=== PATIENT | female | born 1975 | race Caucasian/White ===

== ENCOUNTER → 2019-02-28 | Outpatient (CLI) | payer BC ==
[~2019-02-28] MED LIST: ACET325 PO; ALBU2.5V5 INH; BASAGLAR K100 UNIT/1 SC; Bumetanide1 MG PO; Culturelle1 CAP PO; Duoneb 2.5-0.5 M3 ML INH; FLUC150A PO; Humalog Mi100 UNIT/4; IBUP200 PO; LEVO750 PO; NAPR220 PO; OMEPRAZOLE20 MG PO; OSEL75CA PO; PROBIOTIC250 MG PO; ZYRTEC10 M2 PO
[2019-03-05 16:07] LABS: HPV 16 Negative (Negative); HPV 18 Negative (Negative); HPV OTHER HR TYPES Negative (Negative)
== END | disposition home or self-care (01) ==
LOC: LAB 10:15 → LAB SHORT 10:15
PROVIDERS: Obstetrics & Gynecology
DX: Z01.419 Encounter for gynecological examination (general) (routine) without abnormal findings (principal)
CPT/HCPCS: 87624; G0123

== ENCOUNTER 2019-04-03 11:26 | Inpatient (IN) | payer BC ==
[~2019-04-03] VITALS: Ht 160 cm; Wt 123.4 kg
[2019-04-03 12:00] LABS: PCO2 Arterial 38.3 mmHg (35-45); PO2 Arterial 55.4 mmHg (80-100); pH Blood Arterial 7.39 (7.35-7.45)
[2019-04-03 12:05] LABS: BASOPHILS ABSOLUTE AUTO 0.06 K/mm3 (0.00-0.23); BASOPHILS PERCENT AUTO 1 % (0-2); EOSINOPHILS PERCENT AUTO 0 % (0-6); Hematocrit 44.9 % (33.0-51.0); Hemoglobin 15.1 g/dL (11.5-16.0); IMMATURE GRAN ABSOLUTE AUTO 0.08 K/mm3 (0.00-0.10); IMMATURE GRAN PERCENT AUTO 1 % (0-1); LYMPHOCYTES ABSOLUTE AUTO 0.94 K/mm3 (0.84-5.20); LYMPHOCYTES PERCENT AUTO 9 % (21-46); MONOCYTES ABSOLUTE AUTO 0.59 K/mm3 (0.16-1.47); MONOCYTES PERCENT AUTO 6 % (4-13); Mean Corpuscular HGB 30.1 pg (26.0-34.0); Mean Corpuscular HGB Conc 33.6 g/dL (31.5-36.5); Mean Corpuscular Volume 90 fL (80-100); Mean Platelet Volume 10.6 fL (9.1-12.4); NEUTROPHILS ABSOLUTE AUTO 8.48 K/mm3 (1.96-9.15); NEUTROPHILS PERCENT AUTO 84 % (41-73); Platelet Count 231 K/mm3 (150-400); RDW Coefficient Variation 12.3 % (11.7-14.2); RDW Standard Deviation 40.4 fL (35.1-46.3); Red Blood Cell Count 5.01 M/mm3 (3.80-5.20); White Blood Cell Count 10.15 K/mm3 (4.00-11.30)
[2019-04-03] MEDS ORDERED: ACET325 PO (12:21)
[2019-04-03] MEDS ORDERED: Bumetanide1 MG PO (12:21)
[2019-04-03] MEDS ORDERED: IBUP200 PO (12:21)
[2019-04-03] MEDS ORDERED: NAPR220 PO (12:21)
[2019-04-03] MEDS ORDERED: OMEPRAZOLE20 MG PO (12:21)
[2019-04-03] MEDS ORDERED: ZYRTEC10 M2 PO (12:22)
[2019-04-03] MEDS ORDERED: PROBIOTIC250 MG PO (12:22)
[2019-04-03 12:27] LABS: Troponin I 0.152 ng/mL (0.000-0.040)
[2019-04-03 12:28] LABS: Alanine Aminotransfer (ALT/SGP 38 U/L (12-78); Albumin, Blood 3.2 g/dL (3.4-5.0); Albumin/Globulin Ratio 0.8 (0.8-1.8); Alk Phos 91 U/L (50-136); Anion Gap 10 mmol/L (6-16); Aspartate Aminotrans (AST/SGOT 28 U/L (12-37); Bilirubin, Total 0.4 mg/dL (0.1-1.0); Blood Urea Nitrogen 7 mg/dL (8-24); Bun/Creatinine Ratio 17.4 (12.0-20.0); CO2, Blood 23 mmol/L (21-32); Calcium, Blood 8.5 mg/dL (8.5-10.1); Chloride, Blood 99 mmol/L (98-108); Globulin, Blood 3.9 g/dL (2.2-4.0); Glomerular Filtration Rate >60 (60-); Glucose, Blood 361 mg/dL (70-99); Potassium, Blood 4.1 mmol/L (3.5-5.5); Sodium, Blood 132 mmol/L (136-145); Total Protein, Blood 7.1 g/dL (6.4-8.2)
[2019-04-03 12:42] LABS: Influenza A Positive (NEGATIVE); Influenza B Negative (NEGATIVE)
[2019-04-03 13:22] LABS: International Normalized Ratio 0.91; Prothrombin Time Results 9.8 Sec (9.7-11.5)
--- NOTE | 2019-04-03 15:00 | NUR ---
PT ADMIT PT ADMIT VIA STRETCHER FROM ER WITH INF A+ ON 5L NC AND ALERT AND ORIENT FOLLOWING ALL COMMANDS AND C/O BACK PAIN. PRN TO FOLLOW. HYPERTENSIVE WITH MD AWARE, PALP PULSES T/O AND AFEBRILE. STANDBY TRANSFER TO BED AND SOB WITH ACTIVITY. DIMINISHED T/O BUT SATS IN THE LOWS 90S. WILL CONT TO MONITOR
--- NOTE | 2019-04-03 16:00 | NUR ---
PT UPDATE PT REQUIRED INCREASED IN O2 DEMAND RT ADVISED AND HFNC IN PLACE WITH COURSE LUNG SOUNDS BILAT AND SATS IMPROVING TO THE MID 90S. VSS, BUT REMAINS HYPERTENSIVE WITH PRN GIVEN AND MD AWARE. AFEBRILE, WITH A STRONG NON PRODUCTIVE COUGH. TOLERATING PO INTAKE AND DINNER, UO ADEQUATE FAMILY IN ROOM
[2019-04-03 16:07] LABS: Source, Urine Catheter
[2019-04-03 16:15] LABS: Bilirubin, Urine Neg (Neg); Blood, Urine 1+ (Neg); Glucose Qualitative, Urine 4+ (Neg); Ketones, Urine 4+ (Neg); Leukocyte Esterase, Urine Neg (Neg); Nitrite, Urine Neg (Neg); Protein, Urine 3+ (Neg); Urobilinogen, Urine NORM (Normal)
[2019-04-03 16:29] LABS: Appearance, Urine Clear (Clear); Color, Urine Yellow (P-Yellow)
[2019-04-03 16:31] LABS: Bacteria Few /hpf; Red Blood Cells, Urine 0-2 /hpf (0-2); Squamous Epithelial Cells Few /hpf (Few); White Blood Cells, Urine 0-2 /hpf (0-5)
--- NOTE | 2019-04-03 22:00 | NUR ---
PT RESTING IN BED. TIRED FROM NOT SLEEPING MUCH OVER LAST COUPLE OF DAYS. DENIES PAIN. GETS SOB WITH EXERTION BUT ABLE TO AMBULATE TO BATHROOM AND MOVE SELF IN BED. HAS CHRONIC NEUROPATHY FROM FEET INTO BACK. NO SIGN OF DISTRESS. CALL LIGHT IN REACH.
--- NOTE | 2019-04-04 02:12 | NUR ---
CALLED DR. LITTLE ABOUT TROPONIN. NO NEW ORDERS.
[2019-04-04 03:17] LABS: BASOPHILS ABSOLUTE AUTO 0.02 K/mm3 (0.00-0.23); BASOPHILS PERCENT AUTO 0 % (0-2); EOSINOPHILS PERCENT AUTO 0 % (0-6); Hematocrit 40.1 % (33.0-51.0); Hemoglobin 13.6 g/dL (11.5-16.0); IMMATURE GRAN ABSOLUTE AUTO 0.03 K/mm3 (0.00-0.10); IMMATURE GRAN PERCENT AUTO 0 % (0-1); LYMPHOCYTES ABSOLUTE AUTO 1.62 K/mm3 (0.84-5.20); LYMPHOCYTES PERCENT AUTO 20 % (21-46); MONOCYTES ABSOLUTE AUTO 0.45 K/mm3 (0.16-1.47); MONOCYTES PERCENT AUTO 6 % (4-13); Mean Corpuscular HGB 30.4 pg (26.0-34.0); Mean Corpuscular HGB Conc 33.9 g/dL (31.5-36.5); Mean Corpuscular Volume 90 fL (80-100); Mean Platelet Volume 10.8 fL (9.1-12.4); NEUTROPHILS ABSOLUTE AUTO 5.99 K/mm3 (1.96-9.15); NEUTROPHILS PERCENT AUTO 74 % (41-73); Platelet Count 215 K/mm3 (150-400); RDW Coefficient Variation 12.4 % (11.7-14.2); RDW Standard Deviation 41.1 fL (35.1-46.3); Red Blood Cell Count 4.47 M/mm3 (3.80-5.20); White Blood Cell Count 8.11 K/mm3 (4.00-11.30)
[2019-04-04 03:35] LABS: Anion Gap 11 mmol/L (6-16); Blood Urea Nitrogen 17 mg/dL (8-24); Bun/Creatinine Ratio 36.7 (12.0-20.0); CO2, Blood 22 mmol/L (21-32); Chloride, Blood 99 mmol/L (98-108); Creatinine, Blood 0.46 mg/dL (0.40-1.00); Glomerular Filtration Rate >60 (60-); Glucose, Blood 394 mg/dL (70-99); Potassium, Blood 4.3 mmol/L (3.5-5.5); Sodium, Blood 132 mmol/L (136-145)
--- NOTE | 2019-04-04 06:14 | NUR ---
SUMMARY PT RESTING IN BED. HAD A HERRERA DURING THE NIGHT THAT WAS RELIEVED WITH TYLENOL AND TORADOL. WAS ABLE TO GET SOME SLEEP WELL. THIS AM SHE IS DOWN TO 5L HIGH FLOW NC. GETS SOB WITH EXERTION BUT STILL ABLE TO MOVE SELF IN BED AND AMBULATE TO BATHROOM WITHOUT DESATING. NO SIGN OF DISTRESS.
--- NOTE | 2019-04-04 08:00 | NUR ---
INITIAL ASSESMENT PT WITH INF A+ ON 3L NC AND IN CONTACT AND DROPLET ISO, PT ALERT AND ORIENT FOLLOWING ALL COMMANDS AND C/O BACK PAIN WITH PRN GIVEN PER MD ORDER. SLIGHTLY HYPERTENSIVE PALP PULSES T/O AND AFEBRILE. STANDBY TRANSFER TO BED AND SOB WITH ACTIVITY. DIMINISHED T/O BUT SATS IN THE LOWS 90S. TOLERATING PO INTAKE AND NO BM WITH BTS T/O AND NO N/V. VOIDING VIA BEDSIDE COMMODE WITH ADEQUATE UO DARK YELLOW AND CLEAR. WILL CONT TO MONITOR
--- NOTE | 2019-04-04 18:39 | NUR ---
PT UPDATE PT PROGRESSING AND REQUIRING LESS OXYGEN NOW ON 2L NC AND MBULATORY WITH DECREASE IN SEVERITY OF SOB WHEN AMBULATING. VSS, TOLERATING DIET UO ADEQUATE . WILL SIGN OUT TO NIGHT RN
--- NOTE | 2019-04-04 21:00 | NUR ---
ASSUME CARE PT IN BED FAMILY AT BEDSIDE. PATIENT ON ROOM AIR WITH SATS ABOVE 92%. AFTER ABOUT AN HOUR, PT PUT O2 BACK ON D/T SOB AND LOW SATS (87%). PT VSS. AFEBRILE. NONPRODUCTIVE COUGH. PULSES STRONG THROUGHOUT. LUNGS CLEAR WITH DIMINISHED LOWER LOBES. PT IN PAIN D/T COUGHING FITS, TORADOL GIVEN, PT STATES PAIN IS BETTER CONTROLLED. WILL CONTINUE TO MONITOR.
[2019-04-05 04:15] LABS: BASOPHILS ABSOLUTE AUTO 0.04 K/mm3 (0.00-0.23); BASOPHILS PERCENT AUTO 0 % (0-2); EOSINOPHILS ABSOLUTE AUTO 0.02 K/mm3 (0.00-0.68); EOSINOPHILS PERCENT AUTO 0 % (0-6); Hematocrit 39.2 % (33.0-51.0); Hemoglobin 12.8 g/dL (11.5-16.0); IMMATURE GRAN ABSOLUTE AUTO 0.06 K/mm3 (0.00-0.10); IMMATURE GRAN PERCENT AUTO 1 % (0-1); LYMPHOCYTES ABSOLUTE AUTO 3.26 K/mm3 (0.84-5.20); LYMPHOCYTES PERCENT AUTO 36 % (21-46); MONOCYTES ABSOLUTE AUTO 0.68 K/mm3 (0.16-1.47); MONOCYTES PERCENT AUTO 8 % (4-13); Mean Corpuscular HGB 29.3 pg (26.0-34.0); Mean Corpuscular HGB Conc 32.7 g/dL (31.5-36.5); Mean Corpuscular Volume 90 fL (80-100); NEUTROPHILS ABSOLUTE AUTO 5.05 K/mm3 (1.96-9.15); NEUTROPHILS PERCENT AUTO 55 % (41-73); RDW Coefficient Variation 12.6 % (11.7-14.2); RDW Standard Deviation 41.4 fL (35.1-46.3); Red Blood Cell Count 4.37 M/mm3 (3.80-5.20); White Blood Cell Count 9.11 K/mm3 (4.00-11.30)
--- NOTE | 2019-04-05 05:42 | NUR ---
SHIFT SUMMARY PATIENT REMAINS A&OX4. ON 2L NC WITH SATS ABOVE 92%. PATIENT REPORTS FEELING LIKE THE CONGESTION IS COMING UP AND ABLE TO HAVE MORE PRODUCTIVE COUGHS. AFEBRILE. VSS. NO ACUTE ISSUES OVER NIGHT. WILL CONTINUE TO MONITOR.
[2019-04-05 06:01] LABS: Anion Gap 8 mmol/L (6-16); Blood Urea Nitrogen 19 mg/dL (8-24); Bun/Creatinine Ratio 40.3 (12.0-20.0); CO2, Blood 23 mmol/L (21-32); Calcium, Blood 8.2 mg/dL (8.5-10.1); Chloride, Blood 103 mmol/L (98-108); Creatinine, Blood 0.47 mg/dL (0.40-1.00); Glomerular Filtration Rate >60 (60-); Glucose, Blood 374 mg/dL (70-99); Potassium, Blood 3.8 mmol/L (3.5-5.5); Sodium, Blood 134 mmol/L (136-145)
--- NOTE | 2019-04-05 07:30 | NUR ---
ASSUMED CARE AT 0700. REPORT FROM CLARA PEÑA. PT AWAKE IN ROOM. A&O X4. INDEPENDENT. C/O GENERALIZED RIB/MUSCLE PAIN D/T COUGHING. STATES TORADOL IMPROVED PAIN, 05/20 AT THIS TIME. PT SPEAKING IN FULL SENTANCES. STATES SHE INTERMITTANTLY WORE 2L O2 THROUGHOUT NIGHT. LUNGS c WHEEZES ON LEFT SIDE. REPORTS PRODUCTIVE COUGH. ABD ROUND, SOFT, NON TENDER. BT X 4. MAEW. VSS. WILL CONTINUE TO MONITOR.
--- NOTE | 2019-04-05 08:22 | NUR ---
DR DHALIWAL AT BEDSIDE FOR ASSESSMENT. PT UP IN CHAIR EATING BREAKFAST. PT STATUS CHANGED TO MEDICAL.
--- NOTE | 2019-04-05 16:36 | NUR ---
SHIFT SUMMARY FROM ICU PT ASSESSMENT UNCHANGED FROM BEGINNING OF SHIFT. INTERMITTANTLY WORE 2L O2 VIA NC. INDEPENDENT AND AMBULATORY IN ROOM. VSS. LUNGS c SLIGHT WHEEZES IN LEFT SIDE. STATUS CHANGE TO MED s TELE TODAY, PULMONOLOGY SIGNED OFF ON CASE. AWAITING TRANSFER TO MEDICAL FLOOR. WILL REPORT TO DEREJE PEÑA.
--- NOTE | 2019-04-05 17:38 | NUR ---
PT RECENTLY HERE FROM ICU. DENIES CP, SOB, N/V. PT A/O. DENIES PAIN. PT UP IND. PT ASSISTED WITH ADL'S PRN. DENIES OTHER NEED.
--- NOTE | 2019-04-06 05:34 | NUR ---
SHIFT SUMMARY AAOX4 VSS. PT BP HAS GONE DOWN DURING SHIFT. PT REPORTS FEELING BETTER, STATES SHE WAS ABLE TO SLEEP BETTER THAN THE LAST FEW DAYS. RT BREATHING TREATMENTS DURING THE NIGHT. MEDICATED FOR PAIN X1. PT TOLERATING PO WELL, DENIED NAUSEA. INTERMITTENT COUGHING FITS DURING NIGHT. PT IND IN ROOM. VOIDING WELL
--- NOTE | 2019-04-06 08:39 | NUR ---
DENIES ANY SOB, REPORTS FEELING "BETTER" TODAY, SLEPT GOOD LAST NIGHT, OCCASSIONAL COUGH NOTED, LUNGS CLEAR W/ CRACKLES AT BASES, WANT TO GO HOME TODAY.
[2019-04-06] MEDS ORDERED: ACET325 PO (14:15)
[2019-04-06] MEDS ORDERED: ALBU2.5V5 INH (14:19)
[2019-04-06] MEDS ORDERED: BASAGLAR K100 UNIT/1 SC (14:20)
[2019-04-06] MEDS ORDERED: Humalog Mi100 UNIT/4 (14:21)
[2019-04-06] MEDS ORDERED: Duoneb 2.5-0.5 M3 ML INH (14:26)
[2019-04-06] MEDS ORDERED: Culturelle1 CAP PO (14:30)
[2019-04-06] MEDS ORDERED: LEVO750 PO (14:31)
[2019-04-06] MEDS ORDERED: FLUC150A PO (14:32)
[2019-04-06] MEDS ORDERED: OSEL75CA PO (14:32)
== END 2019-04-06 15:45 | disposition home or self-care (01) | DRG 871 ==
LOC: ER 11:26 → ICUE 13:45 → ICUW 13:45 → ICUE 15:12 → SURS 04-05 17:20
PROVIDERS: Emergency Medicine; Internal Medicine Critical Care Medicine; ADMIT Family Medicine
DX: A41.89 Other specified sepsis (principal); J10.00 Influenza due to other identified influenza virus with unspecified type of pneumonia; J96.01 Acute respiratory failure with hypoxia; E87.1 Hypo-osmolality and hyponatremia; I24.8 Other forms of acute ischemic heart disease; E11.59 Type 2 diabetes mellitus with other circulatory complications; E11.65 Type 2 diabetes mellitus with hyperglycemia; E78.5 Hyperlipidemia, unspecified; G62.9 Polyneuropathy, unspecified; I10 Essential (primary) hypertension; K21.9 Gastro-esophageal reflux disease without esophagitis; M81.0 Age-related osteoporosis without current pathological fracture; F17.210 Nicotine dependence, cigarettes, uncomplicated; Z88.0 Allergy status to penicillin; Z88.2 Allergy status to sulfonamides
CPT/HCPCS: 36415; 36416; 36600; 71045; 71046; 80048; 80053; 81001; 82803; 82947; 83036; 83605; 83880; 84484; 85025; 85610; 85730; 87040; 87070; 87077; 87086; 87147; 87186; 87205; 87804; 93005; 93010; 94640; 94667; 94760; 96374; 96375; 99285-25; A9270; J0360; J1650; J1815; J1885; J1956; J2930; J7030

== ENCOUNTER 2019-04-15 10:27 | Inpatient (IN) | payer BC ==
[~2019-04-15] VITALS: Ht 160 cm; Wt 126.5 kg
[~2019-04-15 10:27] MED LIST changes: -Culturelle1 CAP PO; +Vsl#3 Capsule1 EACH PO
[2019-04-15] MEDS ORDERED: METF500 PO (10:56)
[2019-04-15 11:56] LABS: BASOPHILS ABSOLUTE AUTO 0.07 K/mm3 (0.00-0.23); BASOPHILS PERCENT AUTO 1 % (0-2); EOSINOPHILS ABSOLUTE AUTO 0.11 K/mm3 (0.00-0.68); EOSINOPHILS PERCENT AUTO 1 % (0-6); Hematocrit 40.4 % (33.0-51.0); IMMATURE GRAN ABSOLUTE AUTO 0.08 K/mm3 (0.00-0.10); IMMATURE GRAN PERCENT AUTO 1 % (0-1); LYMPHOCYTES ABSOLUTE AUTO 3.46 K/mm3 (0.84-5.20); LYMPHOCYTES PERCENT AUTO 30 % (21-46); MONOCYTES ABSOLUTE AUTO 0.96 K/mm3 (0.16-1.47); MONOCYTES PERCENT AUTO 8 % (4-13); Mean Corpuscular HGB 30.1 pg (26.0-34.0); Mean Corpuscular HGB Conc 32.2 g/dL (31.5-36.5); Mean Platelet Volume 9.9 fL (9.1-12.4); NEUTROPHILS ABSOLUTE AUTO 7.02 K/mm3 (1.96-9.15); NEUTROPHILS PERCENT AUTO 60 % (41-73); Platelet Count 348 K/mm3 (150-400); RDW Coefficient Variation 12.8 % (11.7-14.2); RDW Standard Deviation 43.9 fL (35.1-46.3); Red Blood Cell Count 4.32 M/mm3 (3.80-5.20)
[2019-04-15 12:00] LABS: Mean Corpuscular Volume 94 fL (80-100)
[2019-04-15] MEDS ORDERED: Glucophage Xr750 MG PO (12:03)
[2019-04-15] MEDS ORDERED: HUMALOG KW200 UNIT/1 SC (12:12)
[2019-04-15 12:14] LABS: Anion Gap 5 mmol/L (6-16); Blood Urea Nitrogen 19 mg/dL (8-24); Bun/Creatinine Ratio 40.4 (12.0-20.0); CO2, Blood 25 mmol/L (21-32); Calcium, Blood 8.6 mg/dL (8.5-10.1); Chloride, Blood 104 mmol/L (98-108); Creatinine, Blood 0.47 mg/dL (0.40-1.00); Glomerular Filtration Rate >60 (60-); Glucose, Blood 155 mg/dL (70-99); Potassium, Blood 5.1 mmol/L (3.5-5.5); Sodium, Blood 134 mmol/L (136-145); Troponin I 0.042 ng/mL (0.000-0.040)
[2019-04-15 13:43] LABS: PCO2 Arterial 37.7 mmHg (35-45); PO2 Arterial 65.9 mmHg (80-100); pH Blood Arterial 7.41 (7.35-7.45)
--- NOTE | 2019-04-15 14:12 | NUR ---
patient gave me permission to help with her care.
[2019-04-15] MEDS ORDERED: VITAMIN B-121000 MCG PO (14:15)
--- NOTE | 2019-04-15 15:00 | NUR ---
ASSUMED CARE: PT ARRIVED FROM ED WITH 1L NC IN PLACE. TACHYPNEA NOTED. ALERT AND ORIENTED. AT BEDSIDE. ASSESSMENT COMPLETED AND MEDICATIONS DISCUSSED. PT WAS BEGINNING TO BE SOB WITH CONVERSING SO OFFERED PT A BREAK FROM ADMISSION QUESTIONS. TELE IN PLACE. REVIEWING MED NEEDS TO CALL
[2019-04-15] MEDS ORDERED: METO25 PO (15:17)
[2019-04-15] MEDS ORDERED: META800 PO (15:18)
[2019-04-15 15:38] LABS: Magnesium, Blood 1.3 mg/dL (1.6-2.4)
[2019-04-15 15:39] LABS: Thyroid Stimulating Hormone 3.35 uIU/mL (0.360-4.800)
--- NOTE | 2019-04-15 16:27 | NUR ---
1605 TRANSFER NOTE PT TO ICU 7 FROM PCU AFTER PROJECT MGR, ARRIVES ON BIPAP 02/15 WITH 40% FIO2, SPO2 96%, Vt 800, HR 106, BP 176/81. LS DIMINISHED WITH EXPIRATORY WHEEZES T/O, CRACKLES IN BASES, TIGHT. PT REPORTS COUGH WITH GREEN/BROWN SPUTUM, NO COUGHING AT THIS TIME. DR. SCHULTZ AT BEDSIDE TO ASSESS. PT REPORTS DECREASED RESPIRATORY EFFORT WITH BIPAP, RR 32. RT AT BEDSIDE.
--- NOTE | 2019-04-15 16:43 | NUR ---
RAPID RESPONSE: PT CALLED NURSE INTO ROOM BECAUSE SHE FELT SHE COULD NOT CHECK HER BREATH. BENDING FRAME OPERATOR AT BEDSIDE. SAT PT UP AND PLACED IN TRIPOD POSITION. CALLED RESPIRATORY WHO STATED HE WOULD ARRIVE WHEN HE COULD DUE TO BEING IN ANOTHER DEPARTMENT. O2 TURNED UP TO 7 L. WALKED PT THROUGH PURSED LIP BREATHING. DIAPHORETIC WITH THIS. PT CAUGHT HER BREATH AND STATED THAT SHE FELT LIKE SHE COULD LAY BACK DOWN TO COMPLETE ECHO. BENDING FRAME OPERATOR RAISED BED TO ATTEMPT TO PUT PT IN SEMI FOWLERS WHICH SHE ONLY TOLERATED FOR A FEW MINUTES. RAPID RESPONSE CALLED. PT WAS PLACED ON NONREBREATHER. PT ASKED FOR BIPAP, CRYING, STATING SHE CAN'T BREATHE. BIPAP BROUGHT TO ROOM. DR HENDRICKS AT BEDSIDE ORDERING 60MG SOLUMEDROL AND 1MG ATIVAN WHICH WERE ADMINISTERED. PT TRANSFERRED TO ICU ROOM 7. DOCTOR HENDRICKS DISCUSSED PT WITH DR SCHULTZ. DR SCHULTZ AT BEDSIDE WHILE THIS RN WAS GIVING REPORT TO CASEY PRICE. PT'S AT BEDSIDE AND AWARE.
[2019-04-15 17:30] LABS: Adenovirus Not Detected (NOT DETECT); Bordetella pertussis Not Detected (NOT DETECT); Chlamydophila pneumoniae Not Detected (NOT DETECT); Coronavirus 229E Not Detected (NOT DETECT); Coronavirus HKU1 Not Detected (NOT DETECT); Coronavirus NL63 Not Detected (NOT DETECT); Coronavirus OC43 Not Detected (NOT DETECT); Human Metapneumovirus Not Detected (NOT DETECT); Human Rhinovirus/Enterovirus Not Detected (NOT DETECT); Influenza A Not Detected (NOT DETECT); Influenza A/2009-H1 Not Detected (NOT DETECT); Influenza A/H1 Not Detected (NOT DETECT); Influenza A/H3 Not Detected (NOT DETECT); Influenza B Not Detected (NOT DETECT); Mycoplasma pneumoniae Not Detected (NOT DETECT); Parainfluenza Virus 1 Not Detected (NOT DETECT); Parainfluenza Virus 2 Not Detected (NOT DETECT); Parainfluenza Virus 3 Not Detected (NOT DETECT); Parainfluenza Virus 4 Not Detected (NOT DETECT); Respiratory Syncytial Virus Not Detected (NOT DETECT)
--- NOTE | 2019-04-15 17:42 | NUR ---
UPDATE ECHO COMPLETED, PT TOLERATED WELL WHILE WEARING BIPAP. BIPAP SETTINGS 10/5, FIO2 30%. PT ABLE TO SPEAK IN FULL SENTENCES, BREAK FROM BIPAP ALLOWED FOR PATIENT TO EAT DINNER. O2 3L/NC, SPO2 94%. PT REMAINS SOB BUT IS ABLE TO EAT AND SPEAK WITH WHILE SITTING STILL. CONTINUES TO POSTURE FOR BREATHING COMFORT.
--- NOTE | 2019-04-15 19:30 | NUR ---
1900: PT FINISHED DINNER WITHOUT DESAT, THEN BIPAP WAS RESUMED AT 10/5 AND 30% FIO2, SPO2 MID TO HIGH 90'S, RR 25-32. PT DENIES NEEDS AT THIS TIME, VOIDING IN BSC WITHOUT DIFFICULTY, INDEPENDENT IN ROOM. IV TO LAC LEAKING, ABX INFUSION INCOMPLETE, HOSPICE CLINICAL MARKETER NURSE NOTIFIED. REPORT TO ONCOMING SHIFT.
--- NOTE | 2019-04-15 19:30 | NUR ---
ASSESSMENT/ASSUMED CARE PT SITTING UP IN BED WATCHING TV AND TALKING TO FAMILY WITH BIPAP ON. C/O PAIN TO RIGHT RIB AND RIGHT CHEST WALL. DR SCHULTZ AT BEDSIDE NOTED PAIN. PT TO BED MED WITH TYLENOL. LUNGS DECREASED WITH CRACKLES TO THE BASES. BIPAP 10/5 FIO2 30%. ORAL CARE DONE. HEART RATE TACHY. BP ELEVATED. POWER GLIDE TO BE PLACED. IV TO LEFT AC LEAKING.
[2019-04-15 19:33] LABS: Source, Urine Clean Catch
[2019-04-15 19:41] LABS: Appearance, Urine Clear (Clear); Bilirubin, Urine Neg (Neg); Blood, Urine Neg (Neg); Color, Urine Yellow (P-Yellow); Glucose Qualitative, Urine 4+ (Neg); Ketones, Urine Neg (Neg); Leukocyte Esterase, Urine Neg (Neg); Nitrite, Urine Neg (Neg); Protein, Urine Neg (Neg); Specific Gravity, Urine 1.005 (1.003-1.022); Urobilinogen, Urine NORM (Normal)
--- NOTE | 2019-04-15 20:15 | NUR ---
POWER GLIDE POWER GLIDE PLACED TO LEFT UPPER ARM. PT TOLERATED WELL. BLOOD GLUCOSE OBTAINED WITH POWER GLIDE. BLOOD GLUCOSE 411, DR SCHULTZ NOTIFIED.
[2019-04-15 20:24] LABS: U Amphetamine Screen Not Detected; U Barbituate Screen Not Detected; U Benzodiazapine Screen Not Detected; U Buprenorphine Screen Not Detected; U Cannabinoids Screen Not Detected; U Cocaine Screen Not Detected; U Methadone Screen Not Detected; U Methamphetamine Screen Not Detected; U Opiates Screen Not Detected; U Oxycodone Screen Not Detected; U Phencyclidine Screen Not Detected; U Propoxyphene Screen Not Detected
--- NOTE | 2019-04-15 22:22 | NUR ---
PT C/O MUSCLE SPASMS. PT STATES,"I TAKE SKELAXIN 800MG TID PRN AND I WOULD LIKE SOME NOW". CALL TO DR HALL AND ORDER RECEIVED.
--- NOTE | 2019-04-15 23:36 | NUR ---
REASSESSMENT PT SITTING UP IN BED WITH BIPAP ON. RT DECREASED O2 TO 25%. LUNGS DECREASESD WITH CRACKLES IN THE BASES. PT MED WITH CARDIZEM FOR HTN. PT TAKING PO FLUIDS WHEN HAVING BREAKS FROM BIPAP.
[2019-04-16 04:27] LABS: BASOPHILS ABSOLUTE AUTO 0.02 K/mm3 (0.00-0.23); BASOPHILS PERCENT AUTO 0 % (0-2); EOSINOPHILS PERCENT AUTO 0 % (0-6); Hematocrit 40.3 % (33.0-51.0); Hemoglobin 13.2 g/dL (11.5-16.0); IMMATURE GRAN ABSOLUTE AUTO 0.11 K/mm3 (0.00-0.10); IMMATURE GRAN PERCENT AUTO 1 % (0-1); LYMPHOCYTES ABSOLUTE AUTO 1.56 K/mm3 (0.84-5.20); LYMPHOCYTES PERCENT AUTO 11 % (21-46); MONOCYTES ABSOLUTE AUTO 0.17 K/mm3 (0.16-1.47); MONOCYTES PERCENT AUTO 1 % (4-13); Mean Corpuscular HGB 29.9 pg (26.0-34.0); Mean Corpuscular HGB Conc 32.8 g/dL (31.5-36.5); Mean Corpuscular Volume 91 fL (80-100); Mean Platelet Volume 9.8 fL (9.1-12.4); NEUTROPHILS ABSOLUTE AUTO 12.91 K/mm3 (1.96-9.15); NEUTROPHILS PERCENT AUTO 87 % (41-73); Platelet Count 359 K/mm3 (150-400); RDW Coefficient Variation 12.6 % (11.7-14.2); RDW Standard Deviation 41.8 fL (35.1-46.3); Red Blood Cell Count 4.41 M/mm3 (3.80-5.20); White Blood Cell Count 14.77 K/mm3 (4.00-11.30)
[2019-04-16 04:49] LABS: Alanine Aminotransfer (ALT/SGP 72 U/L (12-78); Albumin/Globulin Ratio 0.8 (0.8-1.8); Alk Phos 74 U/L (50-136); Anion Gap 8 mmol/L (6-16); Aspartate Aminotrans (AST/SGOT 51 U/L (12-37); Bilirubin, Total 0.3 mg/dL (0.1-1.0); Blood Urea Nitrogen 19 mg/dL (8-24); Bun/Creatinine Ratio 43.8 (12.0-20.0); CO2, Blood 26 mmol/L (21-32); Calcium, Blood 8.9 mg/dL (8.5-10.1); Chloride, Blood 103 mmol/L (98-108); Creatinine, Blood 0.43 mg/dL (0.40-1.00); Glomerular Filtration Rate >60 (60-); Glucose, Blood 204 mg/dL (70-99); Potassium, Blood 3.8 mmol/L (3.5-5.5); Sodium, Blood 137 mmol/L (136-145)
--- NOTE | 2019-04-16 06:55 | NUR ---
SHIFT SUMMARY PT A&O USING BIPAP MOST OF THE NIGHT WITH SHORT BREAKS. VSS. MED WITH HYDRALAZONE AND CARDIZEM DURING THE NIGHT DUE TO HTN. PT STATES,"FEELING BETTER THIS AM, LESS SOB". REPORT TO ON COMING NURSE
--- NOTE | 2019-04-16 18:51 | NUR ---
Per staff request, I met with Emerald to offer encouragement. She and I met when her SO was in ICU a few months ago. She admits she has not taken "great" care of herself, instead turning her attention to her sick SO. He is apparently getting close to requiring total care. She is also very concerned about finances. Emerald is non-methodist, but very appreciaitve of being heard and affirmed. She became tearful and was resistent to allow herself to let go to these emotions. She was appreciaitve of gentle college and career counselor and comfort. She beleives she will recover. I will remain available.
--- NOTE | 2019-04-16 18:55 | NUR ---
SHIFT SUMMARY PT ALERT AND ORIENTED ALL DAY, AND HAS BEEN OFF BIPAP AND NC FOR MAJORITY OF DAY. AT END OF SHIFT PT STATED FEELING SHORT OF BREATH AND SOME SUBSTERNAL CHEST PAIN, RT IS NOTIFIED AND HAS GIVEN A DUONEB UPDRAFT CURRENTLY. BP HAS BEEN ELEVATED, BP MEDS HAVE BEEN CHANGED TODAY. HR IS IN SINUS TACH BUT NO ST CHANGES NOTED. PT HAD HIGH SUGARS AND TREATED WITH SLIDING SCALE HUMALOG. PT REMAINS ICU STATUS AND WILL BE MONITORED OVERNIGHT, MAY GET A STATUS CHANGE TOMORROW IF SHE DOESN'T REQUIRE BIPAP. SHE IS INDEPENDENT IN ROOM, ALTHOUGH GETS DYSPNEIC WITH EXERTION. SHE HAS HAD ADEQUATE URINE OUTPUT, AND IS HAVING FORMED BMs. CRACKLES IN THE BASES, CLEAR EVERYWHERE ELSE. BED LOW AND LOCKED.
--- NOTE | 2019-04-16 20:00 | NUR ---
ASSUMED CARE PT RESTING IN BED COMFORTABLY W/ [facility]. BEDSIDE REPORT TAKEN FROM CHELSIE PEÑA. PT INVOLVED IN REPORT, ASSITING WITH EXPLAINING TREATMENTS AND CARE T/O DAY. PT CURRENTLY ON 4L NC FOR RECOVERY AFTER AMBULATING IN ROOM TO TOILET. BREATHING TREATMENT GOING BY RT. PT DENYING ANY NEEDS AT THIS TIME. CALL LIGHT IS WITHIN REACH.
[2019-04-17 04:48] LABS: BASOPHILS ABSOLUTE AUTO 0.04 K/mm3 (0.00-0.23); BASOPHILS PERCENT AUTO 0 % (0-2); EOSINOPHILS ABSOLUTE AUTO 0.01 K/mm3 (0.00-0.68); EOSINOPHILS PERCENT AUTO 0 % (0-6); Hemoglobin 13.2 g/dL (11.5-16.0); IMMATURE GRAN ABSOLUTE AUTO 0.19 K/mm3 (0.00-0.10); IMMATURE GRAN PERCENT AUTO 1 % (0-1); LYMPHOCYTES ABSOLUTE AUTO 2.11 K/mm3 (0.84-5.20); LYMPHOCYTES PERCENT AUTO 10 % (21-46); MONOCYTES ABSOLUTE AUTO 1.22 K/mm3 (0.16-1.47); MONOCYTES PERCENT AUTO 6 % (4-13); Mean Corpuscular HGB 30.1 pg (26.0-34.0); Mean Corpuscular HGB Conc 32.2 g/dL (31.5-36.5); Mean Platelet Volume 10.4 fL (9.1-12.4); NEUTROPHILS ABSOLUTE AUTO 17.15 K/mm3 (1.96-9.15); NEUTROPHILS PERCENT AUTO 83 % (41-73); Platelet Count 360 K/mm3 (150-400); RDW Coefficient Variation 12.8 % (11.7-14.2); RDW Standard Deviation 43.9 fL (35.1-46.3); Red Blood Cell Count 4.38 M/mm3 (3.80-5.20); White Blood Cell Count 20.72 K/mm3 (4.00-11.30)
[2019-04-17 04:51] LABS: Mean Corpuscular Volume 94 fL (80-100)
[2019-04-17 05:16] LABS: Alanine Aminotransfer (ALT/SGP 55 U/L (12-78); Albumin/Globulin Ratio 0.8 (0.8-1.8); Alk Phos 79 U/L (50-136); Anion Gap 8 mmol/L (6-16); Aspartate Aminotrans (AST/SGOT 22 U/L (12-37); Bilirubin, Total 0.2 mg/dL (0.1-1.0); Blood Urea Nitrogen 24 mg/dL (8-24); Bun/Creatinine Ratio 51.8 (12.0-20.0); CHOL/HDL RATIO 4.7; CO2, Blood 25 mmol/L (21-32); Calcium, Blood 9.1 mg/dL (8.5-10.1); Chloride, Blood 108 mmol/L (98-108); Cholesterol 299 mg/dL (50-200); Creatinine, Blood 0.46 mg/dL (0.40-1.00); Globulin, Blood 3.7 g/dL (2.2-4.0); Glomerular Filtration Rate >60 (60-); Glucose, Blood 297 mg/dL (70-99); HDL Cholesterol 63 mg/dL (>39); LDL/HDL RATIO 2.6; Low Density Lipoprotein Chol 167 mg/dL (0-110); Sodium, Blood 141 mmol/L (136-145); Total Protein, Blood 6.7 g/dL (6.4-8.2); Triglycerides 347 mg/dL (30-160); Vancomycin, Trough 8.9 ug/mL (5.0-10.0); Very Low Density Lipoprot Chol 69 mg/dL (6-32)
--- NOTE | 2019-04-17 06:29 | NUR ---
SHIFT SUMMARY: PT AWAKE IN BED. WAS ABLE TO AMBULATE TO SHOWER THIS AM. SPO2 >90% ON RA. SOME DYSPNEA WITH EXERTION. AFEBRILE. ST WITH HR 90-110S. REPORTS GASTROPARESIS SO IT TAKES TIME FOR PO MEDS TO TAKE EFFECT. POWERGLIDE IN ISABELL-POSITIONAL BUT FLUSHES AND DRAWS WELL. WILL PASS REPORT TO NEXT SHIFT
--- NOTE | 2019-04-17 07:15 | NUR ---
ASSUMED CARE OF PT. IS DYSPNEIC UPON INITIAL ASSESSMENT FROM USING TOILET, WEARING O2 @ 4 L/MIN NC UNTIL RECOVERED. LUNG SOUNDS VERY TIGHT WITH NO WHEEZES. DENIES PAIN.
--- NOTE | 2019-04-17 08:46 | NUR ---
DR. BAEZ AT BEDSIDE. WILL ORDER CARDIOLOGY CONSULT FOR POSSIBLE CHF. DECLINED STATUS CHANGE TO PCU.
--- NOTE | 2019-04-17 10:05 | NUR ---
PER Negrito HILL, BELLPERSON, DR. MORALES STATED OK FOR STATUS CHANGE TO PCU.
--- NOTE | 2019-04-17 16:31 | NUR ---
PT OFF UNIT FOT CT ANGIOGRAM VIA W/C AND TRANSPORTER.
--- NOTE | 2019-04-17 19:47 | NUR ---
SHIFT SUMMARY: DYSPNEA MUCH IMPROVED AFTER AM LASIX ADMINISTRATION. AMBULATING IN ROOM AND USING BSC INDEPENDENTLY. GOOD APPETITE AND FLUID INTAKE. DENIES PAIN, BUT REQUESTED DOSE OF MUSCLE RELAXANT AFTER DYSPNEIC EPISODE THIS MORNING. SAW SUPPORT TEACHER, STATED THAT HF WILL BE MEDICALLY MANAGED AT THIS TIME. CBG STABLE. UNABLE TO GIVE SPUTUM SPECIMEN. LUNGS SOUNDS CLEAR THROUGHOUT. STATUS CHANGED TO PCU.
--- NOTE | 2019-04-17 21:22 | NUR ---
PT RESTING IN BED. DENIES PAIN, SOB, AND N/V. PT STATES SHE HAS CHRONIC NEUROPATHY IN FEET. HAS MUSCLE SPASMS IN BACK FROM COUGHING. TAKES SKELAXIN FOR THAT. PT IS INDEP IN ROOM. SOB WITH EXERTION BUT RECOVERS ON RA. NO SIGN OF DISTRESS. CALL LIGHT IN REACH.
[2019-04-18 04:50] LABS: BASOPHILS ABSOLUTE AUTO 0.07 K/mm3 (0.00-0.23); BASOPHILS PERCENT AUTO 1 % (0-2); EOSINOPHILS ABSOLUTE AUTO 0.11 K/mm3 (0.00-0.68); EOSINOPHILS PERCENT AUTO 1 % (0-6); Hematocrit 37.6 % (33.0-51.0); Hemoglobin 11.9 g/dL (11.5-16.0); IMMATURE GRAN ABSOLUTE AUTO 0.07 K/mm3 (0.00-0.10); IMMATURE GRAN PERCENT AUTO 1 % (0-1); LYMPHOCYTES ABSOLUTE AUTO 6.55 K/mm3 (0.84-5.20); LYMPHOCYTES PERCENT AUTO 45 % (21-46); MONOCYTES ABSOLUTE AUTO 1.13 K/mm3 (0.16-1.47); MONOCYTES PERCENT AUTO 8 % (4-13); Mean Corpuscular HGB 29.5 pg (26.0-34.0); Mean Corpuscular HGB Conc 31.6 g/dL (31.5-36.5); Mean Corpuscular Volume 93 fL (80-100); Mean Platelet Volume 10.5 fL (9.1-12.4); NEUTROPHILS ABSOLUTE AUTO 6.69 K/mm3 (1.96-9.15); NEUTROPHILS PERCENT AUTO 46 % (41-73); Platelet Count 318 K/mm3 (150-400); RDW Standard Deviation 44.2 fL (35.1-46.3); Red Blood Cell Count 4.03 M/mm3 (3.80-5.20); White Blood Cell Count 14.62 K/mm3 (4.00-11.30)
[2019-04-18 05:06] LABS: Albumin, Blood 2.8 g/dL (3.4-5.0); Anion Gap 8 mmol/L (6-16); Blood Urea Nitrogen 29 mg/dL (8-24); Bun/Creatinine Ratio 45.2 (12.0-20.0); CO2, Blood 27 mmol/L (21-32); Calcium, Blood 8.4 mg/dL (8.5-10.1); Chloride, Blood 107 mmol/L (98-108); Creatinine, Blood 0.64 mg/dL (0.40-1.00); Glomerular Filtration Rate >60 (60-); Glucose, Blood 72 mg/dL (70-99); Phosphorus, Blood 3.8 mg/dL (2.5-4.9); Potassium, Blood 3.6 mmol/L (3.5-5.5); Sodium, Blood 142 mmol/L (136-145)
--- NOTE | 2019-04-18 05:47 | NUR ---
NO ACUTE CHANGES THIS SHIFT. PT HAS BEEN ON RA. INDEP UP IN ROOM. NO SIGN OF DISTRESS.
--- NOTE | 2019-04-18 11:16 | NUR ---
PT ALERT AND ORIENTED. ARRIVED TO THE FLOOR AMBULATING. PT REFUSED WHEELCHAIR FOR TRANSPORTATION. PT ORIENTED TO THE ROOM. PT STATES NO NEEDS AT THIS TIME.
--- NOTE | 2019-04-18 17:11 | NUR ---
SHIFT SUMMARY PT ARRIVED TO THE UNIT THIS MORNING. PT AMBULATORY, A/O, AND INDEPENDENT IN THE ROOM. PT HAS BEEN RESTING IN THE BED THROUGHOUT THIS SHIFT. PT COMPLAINED OF FEELING "OFF" THIS AFTERNOON. BLOOD GLUCOSE AND VITALS CHECKED. BLOOD GLUCOSE 69, BP 178/109. PT ATE A COOKIE SHE HAD IN THE ROOM AND WAS PROVIDED WITH ORANGE JUICE. PT ADMINISTERED HYDRALAZINE PRN WELL HER SCHEDULED COREG. BLOOD GLUCOSE AND BP CHECKED A SHORT TIME LATER. BLOOD GLUCOSE 118, BP 124/77. PT REPORTS FEELING "NORMAL." PT CURRENTLY RESTING IN BED WITH NO FURTHER NEEDS AT THIS TIME.
--- NOTE | 2019-04-18 20:55 | NUR ---
PT CAP BLOOD GLUCOSE 254 AT [id number]
--- NOTE | 2019-04-19 04:10 | NUR ---
PT IS A/O X4 AND IND. IN ROOM. PT TOLERATING PO INTAKE AND IS VOIDING. PT HAS HAD SHORTNESS OF BREATH OCCASIONALLY AND HAS HAD BREATHING TREATMENTS THROUGHOUT THE NIGHT. CPAP IS IN ROOM; PT USES NEEDED. PT REPORTS SHE WANTS TO GO HOME TODAY AND FEELS THOUGH SHE IS READY. PT HAS HAD CHRONIC PAIN; SHE REQUIRED SOME STRONGER PAIN MEDICATION AND WAS GIVEN TRAMADOL PER ORDER. THIS WORKED WELL AND PT HAS BEEN SLEEPING SINCE. CONT. BIOX AT BEDSIDE. ASSISTED WITH ADL'S PRN.
[2019-04-19 05:18] LABS: BASOPHILS ABSOLUTE AUTO 0.08 K/mm3 (0.00-0.23); BASOPHILS PERCENT AUTO 1 % (0-2); EOSINOPHILS ABSOLUTE AUTO 0.19 K/mm3 (0.00-0.68); EOSINOPHILS PERCENT AUTO 2 % (0-6); Hemoglobin 12.2 g/dL (11.5-16.0); IMMATURE GRAN ABSOLUTE AUTO 0.06 K/mm3 (0.00-0.10); IMMATURE GRAN PERCENT AUTO 1 % (0-1); LYMPHOCYTES ABSOLUTE AUTO 4.86 K/mm3 (0.84-5.20); LYMPHOCYTES PERCENT AUTO 48 % (21-46); MONOCYTES ABSOLUTE AUTO 0.72 K/mm3 (0.16-1.47); MONOCYTES PERCENT AUTO 7 % (4-13); Mean Corpuscular HGB 30.3 pg (26.0-34.0); Mean Corpuscular Volume 92 fL (80-100); Mean Platelet Volume 10.3 fL (9.1-12.4); NEUTROPHILS ABSOLUTE AUTO 4.32 K/mm3 (1.96-9.15); NEUTROPHILS PERCENT AUTO 42 % (41-73); Platelet Count 290 K/mm3 (150-400); RDW Coefficient Variation 12.7 % (11.7-14.2); RDW Standard Deviation 42.7 fL (35.1-46.3); Red Blood Cell Count 4.03 M/mm3 (3.80-5.20); White Blood Cell Count 10.23 K/mm3 (4.00-11.30)
[2019-04-19 05:35] LABS: Albumin, Blood 2.6 g/dL (3.4-5.0); Anion Gap 4 mmol/L (6-16); Blood Urea Nitrogen 25 mg/dL (8-24); Bun/Creatinine Ratio 46.5 (12.0-20.0); CO2, Blood 29 mmol/L (21-32); Calcium, Blood 8.6 mg/dL (8.5-10.1); Chloride, Blood 107 mmol/L (98-108); Creatinine, Blood 0.54 mg/dL (0.40-1.00); Glomerular Filtration Rate >60 (60-); Glucose, Blood 112 mg/dL (70-99); Phosphorus, Blood 3.5 mg/dL (2.5-4.9); Potassium, Blood 4.2 mmol/L (3.5-5.5); Sodium, Blood 140 mmol/L (136-145)
[2019-04-19] MEDS ORDERED: Bumetanide1 MG PO (10:03)
[2019-04-19] MEDS ORDERED: ASPI81CH PO (10:04)
[2019-04-19] MEDS ORDERED: CARV25 PO (10:05)
[2019-04-19] MEDS ORDERED: GUAI600T33 PO (10:06)
[2019-04-19] MEDS ORDERED: LOSA50 PO (10:06)
[2019-04-19] MEDS ORDERED: SPIR25 PO (10:07)
--- NOTE | 2019-04-19 11:30 | NUR ---
DISCHARGE SUMMARY PT A&OX4, VSS, LEFT FLOOR VIA WC WITH RN TO GO HOME WITH ALL PERSONAL POSSESSIONS INCLUDING DC PACKET. DC INSTRUCTIONS PROVIDED. PT REP UNDERSTANDING THOSE INSTRUCTIONS INCLUDING FU WITH PCP. IV DC'D.
== END 2019-04-19 11:23 | disposition home or self-care (01) | DRG 314 ==
LOC: ER 10:27 → PCU 14:09 → ICUE 14:09 → PCU 14:51 → ICUE 16:09 → SURS 04-18 10:16
PROVIDERS: Emergency Medicine; Internal Medicine; Internal Medicine Critical Care Medicine; Nurse Practitioner Acute Care; ADMIT Internal Medicine
PROC: 5A09357 Assistance with Respiratory Ventilation, Less than 24 Consecutive Hours, Continuous Positive Airway Pressure (ICD-10-PCS; principal; 2019-04-15)
DX: I42.9 Cardiomyopathy, unspecified (principal); J96.01 Acute respiratory failure with hypoxia; R65.10 Systemic inflammatory response syndrome (SIRS) of non-infectious origin without acute organ dysfunction; Z68.42 Body mass index [BMI] 45.0-49.9, adult; F17.210 Nicotine dependence, cigarettes, uncomplicated; Z79.4 Long term (current) use of insulin; E66.01 Morbid (severe) obesity due to excess calories; M81.0 Age-related osteoporosis without current pathological fracture; G47.33 Obstructive sleep apnea (adult) (pediatric); E11.42 Type 2 diabetes mellitus with diabetic polyneuropathy; E03.9 Hypothyroidism, unspecified; I10 Essential (primary) hypertension; E11.65 Type 2 diabetes mellitus with hyperglycemia; E78.5 Hyperlipidemia, unspecified; E28.2 Polycystic ovarian syndrome
CPT/HCPCS: 0099U; 31720; 36415; 36600; 71045; 71046; 71250; 71260; 80048; 80053; 80061; 80069; 80202; 81003; 82803; 82947; 83036; 83735; 83880; 84145; 84443; 84484; 85025; 87449; 93005; 93010; 93306; 94640; 94644; 94660; 94760; 94762; 96361; 96374; 96375; 96376; 99285-25; A9270; A9270-GY; C1751; J1650; J1940; J2060; J2930; J3370; J3475; J7030; J7050; Q9967

== ENCOUNTER → 2019-05-31 | Outpatient (CLI) | payer BC ==
[~2019-05-31] MED LIST changes: +ASPI81CH PO; +CARV25 PO; +GUAI600T33 PO; +Glucophage Xr750 MG PO; +HUMALOG KW200 UNIT/1 SC; +LOSA50 PO; +META800 PO; +METF500 PO; +METO25 PO; +SPIR25 PO; +VITAMIN B-121000 MCG PO
[2019-06-01 15:43] LABS: Stool Occult Bld Immuno 1 Negative (NEGATIVE)
== END ==
LOC: LAB 10:40 → LAB SHORT 10:40
PROVIDERS: Nurse Practitioner Family
DX: K92.1 Melena (principal)
CPT/HCPCS: 82274

== ENCOUNTER 2019-12-15 06:59 | Emergency (ER) | payer BC ==
[~2019-12-15] VITALS: Ht 160 cm; Wt 117.9 kg
[~2019-12-15 06:59] MED LIST changes: +AZITHROMYCIN250 MG PO; +ENTRESTO 24 MG1 EACH PO; +ESOM20 PO; +FARXIGA10 MG PO; +Loratadine10 MG PO
[2019-12-15 07:45] LABS: BASOPHILS ABSOLUTE AUTO 0.13 K/mm3 (0.00-0.23); BASOPHILS PERCENT AUTO 1 % (0-2); EOSINOPHILS ABSOLUTE AUTO 0.18 K/mm3 (0.00-0.68); EOSINOPHILS PERCENT AUTO 1 % (0-6); Hematocrit 47.3 % (33.0-51.0); Hemoglobin 15.8 g/dL (11.5-16.0); IMMATURE GRAN ABSOLUTE AUTO 0.12 K/mm3 (0.00-0.10); IMMATURE GRAN PERCENT AUTO 1 % (0-1); LYMPHOCYTES ABSOLUTE AUTO 5.45 K/mm3 (0.84-5.20); LYMPHOCYTES PERCENT AUTO 40 % (21-46); MONOCYTES ABSOLUTE AUTO 0.82 K/mm3 (0.16-1.47); MONOCYTES PERCENT AUTO 6 % (4-13); Mean Corpuscular HGB 29.3 pg (26.0-34.0); Mean Corpuscular HGB Conc 33.4 g/dL (31.5-36.5); Mean Corpuscular Volume 88 fL (80-100); Mean Platelet Volume 10.1 fL (9.1-12.4); NEUTROPHILS ABSOLUTE AUTO 7.02 K/mm3 (1.96-9.15); NEUTROPHILS PERCENT AUTO 51 % (41-73); Platelet Count 356 K/mm3 (150-400); RDW Coefficient Variation 12.8 % (11.7-14.2); RDW Standard Deviation 40.8 fL (35.1-46.3); Red Blood Cell Count 5.39 M/mm3 (3.80-5.20); White Blood Cell Count 13.72 K/mm3 (4.00-11.30)
[2019-12-15 08:12] LABS: Alanine Aminotransfer (ALT/SGP 40 U/L (12-78); Albumin, Blood 3.9 g/dL (3.4-5.0); Alk Phos 78 U/L (50-136); Anion Gap 13 mmol/L (6-16); Aspartate Aminotrans (AST/SGOT 19 U/L (12-37); Bilirubin, Total 0.3 mg/dL (0.1-1.0); Blood Urea Nitrogen 40 mg/dL (8-24); Bun/Creatinine Ratio 38.8 (12.0-20.0); CO2, Blood 25 mmol/L (21-32); Calcium, Blood 9.1 mg/dL (8.5-10.1); Chloride, Blood 92 mmol/L (98-108); Creatinine, Blood 1.03 mg/dL (0.40-1.00); Globulin, Blood 4.1 g/dL (2.2-4.0); Glomerular Filtration Rate >60 (60-); Glucose, Blood 355 mg/dL (70-99); Potassium, Blood 3.5 mmol/L (3.5-5.5); Sodium, Blood 130 mmol/L (136-145); Troponin I <0.015 ng/mL (0.000-0.040)
== END 2019-12-15 09:29 | disposition home or self-care (01) ==
LOC: ER 06:59
PROVIDERS: Emergency Medicine
DX: R07.9 Chest pain, unspecified (principal); R10.9 Unspecified abdominal pain; E03.9 Hypothyroidism, unspecified; I10 Essential (primary) hypertension; K21.9 Gastro-esophageal reflux disease without esophagitis; E78.5 Hyperlipidemia, unspecified; E11.42 Type 2 diabetes mellitus with diabetic polyneuropathy; I25.2 Old myocardial infarction; Z88.0 Allergy status to penicillin; Z88.8 Allergy status to other drugs, medicaments and biological substances; Z88.2 Allergy status to sulfonamides; Z79.4 Long term (current) use of insulin; Z79.82 Long term (current) use of aspirin; Z86.14 Personal history of Methicillin resistant Staphylococcus aureus infection; Z79.899 Other long term (current) drug therapy
CPT/HCPCS: 71046; 76705; 80053; 83690; 83880; 84484; 85025; 93005; 93010; 96374; 96375; 99284-25; J2405; J2765

== ENCOUNTER 2020-03-21 15:20 | Emergency (ER) | payer BC ==
[~2020-03-21] VITALS: Ht 160 cm; Wt 117.9 kg
[2020-03-21] MEDS ORDERED: EZET10 PO (16:11)
[2020-03-21] MEDS ORDERED: FENOFIBRATE145 MG PO (16:11)
[2020-03-21] MEDS ORDERED: CITALOPRAM HBR20 MG PO (16:12)
[2020-03-21] MEDS ORDERED: ZANAFLEX4 M3 PO (16:12)
[2020-03-21] MEDS ORDERED: VASCEPA1 G1 PO (16:13)
[2020-03-21] MEDS ORDERED: POTCHL20ER PO (16:14)
[2020-03-21 16:43] LABS: BASOPHILS ABSOLUTE AUTO 0.06 K/mm3 (0.00-0.23); BASOPHILS PERCENT AUTO 1 % (0-2); EOSINOPHILS ABSOLUTE AUTO 0.04 K/mm3 (0.00-0.68); EOSINOPHILS PERCENT AUTO 0 % (0-6); Hematocrit 44.9 % (33.0-51.0); IMMATURE GRAN PERCENT AUTO 1 % (0-1); LYMPHOCYTES PERCENT AUTO 20 % (21-46); MONOCYTES ABSOLUTE AUTO 0.77 K/mm3 (0.16-1.47); MONOCYTES PERCENT AUTO 7 % (4-13); Mean Corpuscular HGB 28.7 pg (26.0-34.0); Mean Corpuscular HGB Conc 33.4 g/dL (31.5-36.5); Mean Corpuscular Volume 86 fL (80-100); Mean Platelet Volume 9.6 fL (9.1-12.4); NEUTROPHILS ABSOLUTE AUTO 7.36 K/mm3 (1.96-9.15); NEUTROPHILS PERCENT AUTO 71 % (41-73); Platelet Count 333 K/mm3 (150-400); RDW Coefficient Variation 12.4 % (11.7-14.2); RDW Standard Deviation 38.7 fL (35.1-46.3); Red Blood Cell Count 5.22 M/mm3 (3.80-5.20); White Blood Cell Count 10.43 K/mm3 (4.00-11.30)
[2020-03-21 16:48] LABS: Influenza A, PCR Negative (NEGATIVE); Influenza B, PCR Negative (NEGATIVE); Resp Syncytial Virus, PCR Negative (NEGATIVE)
[2020-03-21 16:54] LABS: SARS-Cov-2 (COVID-19) PCR, MMC Positive (NEGATIVE)
[2020-03-21 16:56] LABS: Alanine Aminotransfer (ALT/SGP 37 U/L (12-78); Albumin, Blood 3.6 g/dL (3.4-5.0); Albumin/Globulin Ratio 0.8 (0.8-1.8); Alk Phos 94 U/L (50-136); Anion Gap 12 mmol/L (6-16); Aspartate Aminotrans (AST/SGOT 23 U/L (12-37); Bilirubin, Total 0.4 mg/dL (0.1-1.0); Blood Urea Nitrogen 16 mg/dL (8-24); Bun/Creatinine Ratio 26.3 (12.0-20.0); CO2, Blood 24 mmol/L (21-32); Calcium, Blood 9.4 mg/dL (8.5-10.1); Chloride, Blood 93 mmol/L (98-108); Creatinine, Blood 0.61 mg/dL (0.40-1.00); Globulin, Blood 4.5 g/dL (2.2-4.0); Glomerular Filtration Rate >60 (60-); Glucose, Blood 367 mg/dL (70-99); Potassium, Blood 4.1 mmol/L (3.5-5.5); Sodium, Blood 129 mmol/L (136-145); Total Protein, Blood 8.1 g/dL (6.4-8.2)
[2020-03-21 17:05] LABS: International Normalized Ratio 0.91; Prothrombin Time Results 9.8 Sec (9.7-11.5)
== END 2020-03-21 18:35 | disposition home or self-care (01) ==
LOC: ER 15:20
PROVIDERS: Physician Assistant
DX: U07.1 COVID-19 (principal); R09.02 Hypoxemia; R50.9 Fever, unspecified; R06.02 Shortness of breath; R52 Pain, unspecified; E03.9 Hypothyroidism, unspecified; I10 Essential (primary) hypertension; K21.9 Gastro-esophageal reflux disease without esophagitis; E78.5 Hyperlipidemia, unspecified; E11.42 Type 2 diabetes mellitus with diabetic polyneuropathy; I25.2 Old myocardial infarction; Z79.4 Long term (current) use of insulin; Z79.899 Other long term (current) drug therapy; Z88.0 Allergy status to penicillin; Z88.8 Allergy status to other drugs, medicaments and biological substances; Z88.2 Allergy status to sulfonamides; Z79.82 Long term (current) use of aspirin
CPT/HCPCS: 0241U; 36415; 71045; 80053; 83605; 84484; 85025; 85610; 85730; 87040; 93005; 93010; 99284-25

== ENCOUNTER 2020-08-23 11:18 | Emergency (ER) | payer BC ==
[~2020-08-23] VITALS: Ht 160 cm; Wt 129.3 kg
[~2020-08-23 11:18] MED LIST changes: +CITALOPRAM HBR20 MG PO; +EZET10 PO; +FENOFIBRATE145 MG PO; +POTCHL20ER PO; +VASCEPA1 G1 PO; +ZANAFLEX4 M3 PO
== END 2020-08-23 13:40 | disposition home or self-care (01) ==
LOC: ER 11:18
DX: S93.402A Sprain of unspecified ligament of left ankle, initial encounter (principal); S90.32XA Contusion of left foot, initial encounter; I11.0 Hypertensive heart disease with heart failure; E11.9 Type 2 diabetes mellitus without complications; I50.9 Heart failure, unspecified; I25.2 Old myocardial infarction; Z79.82 Long term (current) use of aspirin; Z79.899 Other long term (current) drug therapy; Z87.891 Personal history of nicotine dependence; X50.1XXA Overexertion from prolonged static or awkward postures, initial encounter
CPT/HCPCS: 73590; 73600; 73630; 96372; 99283-25; J1885

== ENCOUNTER 2020-08-27 01:29 | Emergency (ER) | payer BC ==
[~2020-08-27] VITALS: Ht 160 cm; Wt 129.3 kg
[2020-08-27] MEDS ORDERED: TRAM50 PO (02:28)
== END 2020-08-27 03:06 | disposition home or self-care (01) ==
LOC: ER 01:29
DX: S82.832A Other fracture of upper and lower end of left fibula, initial encounter for closed fracture (principal); E11.9 Type 2 diabetes mellitus without complications; I11.0 Hypertensive heart disease with heart failure; I50.9 Heart failure, unspecified; I25.2 Old myocardial infarction; E78.5 Hyperlipidemia, unspecified; Z87.891 Personal history of nicotine dependence; X58.XXXA Exposure to other specified factors, initial encounter
CPT/HCPCS: 29515; 73610; 99283-25; A9270

== ENCOUNTER → 2021-01-13 | Outpatient (CLI) | payer BC ==
[~2021-01-13] MED LIST changes: +TRAM50 PO; +Vibramycin100 MG PO
== END | disposition home or self-care (01) ==
LOC: LAB 12:00 → LAB SHORT 12:00
DX: H60.01 Abscess of right external ear (principal)
CPT/HCPCS: 87070; 87075; 87076; 87205

== ENCOUNTER → 2021-05-04 | Outpatient (CLI) | payer BC | LOC: LAB SHORT 11:54 | DX: E11.69 Type 2 diabetes mellitus with other specified complication (principal) | CPT/HCPCS: 82043 ==

== ENCOUNTER → 2021-12-23 | Outpatient (CLI) | payer BC ==
[~2021-12-23] MED LIST changes: +ALDACTONE25 MG PO; +CALCIUM 500 MG1 EAC2 PO; +INSULIN GL100 UNIT/3 SC; +ROSU5 PO; +TOCO1000 PO; +UBID10 PO; +VITAMIN D325 MC3 PO
== END | disposition home or self-care (01) ==
LOC: LAB SHORT 18:15 → LAB 18:15
DX: R39.89 Other symptoms and signs involving the genitourinary system (principal)
CPT/HCPCS: 87077; 87086; 87186

== ENCOUNTER → 2022-07-31 | Outpatient (CLI) | payer SELFPAY | LOC: LAB SHORT 08:10 → LAB 08:10 | DX: R30.0 Dysuria (principal) | CPT/HCPCS: 87086 ==

== ENCOUNTER 2024-01-03 08:09 | Observation (INO) | payer OTHER ==
[~2024-01-03] VITALS: Ht 160 cm; Wt 122.8 kg
[~2024-01-03 08:09] MED LIST changes: -Glucophage Xr750 MG PO; +INSULANI SC; -INSULIN GL100 UNIT/3 SC; -ROSU5 PO; +ROSUVASTATIN CAL5 MG PO
[2024-01-03] MEDS ORDERED: Cleocin HCl150 MG (08:22)
[2024-01-03] MEDS ORDERED: CEFDINIR300 M4 PO (08:22)
[2024-01-03] MEDS ORDERED: NS 1,000 ML IV SCH (09:05)
[2024-01-03] MEDS ORDERED: Ketorolac Tromethamine 15mg Vial IV ONE (09:10)
[2024-01-03] MEDS ORDERED: Cefepime HCl 1,000 MG in NS 100 ML IV ONE (09:15)
[2024-01-03 09:21] LABS: BASOPHILS ABSOLUTE AUTO 0.11 K/mm3 (0.00-0.23); BASOPHILS PERCENT AUTO 1 % (0-2); EOSINOPHILS ABSOLUTE AUTO 0.29 K/mm3 (0.00-0.68); EOSINOPHILS PERCENT AUTO 3 % (0-6); Hematocrit 42.6 % (33.0-51.0); Hemoglobin 14.1 g/dL (11.5-16.0); IMMATURE GRAN ABSOLUTE AUTO 0.07 K/mm3 (0.00-0.10); IMMATURE GRAN PERCENT AUTO 1 % (0-1); LYMPHOCYTES ABSOLUTE AUTO 3.36 K/mm3 (0.84-5.20); LYMPHOCYTES PERCENT AUTO 32 % (21-46); MONOCYTES ABSOLUTE AUTO 0.68 K/mm3 (0.16-1.47); MONOCYTES PERCENT AUTO 6 % (4-13); Mean Corpuscular HGB 28.1 pg (26.0-34.0); Mean Corpuscular HGB Conc 33.1 g/dL (31.5-36.5); Mean Corpuscular Volume 85 fL (80-100); Mean Platelet Volume 10.2 fL (9.1-12.4); NEUTROPHILS ABSOLUTE AUTO 6.06 K/mm3 (1.96-9.15); NEUTROPHILS PERCENT AUTO 57 % (41-73); Platelet Count 328 K/mm3 (150-400); RDW Coefficient Variation 13.1 % (11.7-14.2); RDW Standard Deviation 40.5 fL (35.1-46.3); Red Blood Cell Count 5.02 M/mm3 (3.80-5.20); White Blood Cell Count 10.57 K/mm3 (4.00-11.30)
[2024-01-03 09:40] LABS: Albumin, Blood 3.2 g/dL (3.4-5.0); Albumin/Globulin Ratio 0.9 (0.8-1.8); Bilirubin, Total 0.3 mg/dL (0.1-1.0); Bun/Creatinine Ratio 32.4 (12.0-20.0); Calcium, Blood 9.4 mg/dL (8.5-10.1); Creatinine, Blood 0.68 mg/dL (0.40-1.00); Globulin, Blood 3.7 g/dL (2.2-4.0); Potassium, Blood 4.3 mmol/L (3.5-5.5); Total Protein, Blood 6.9 g/dL (6.4-8.2)
[2024-01-03] MEDS ORDERED: Vancomycin HCL 2,500 MG in NS 500 ML IV ONE (09:40)
[2024-01-03] MEDS ORDERED: TiZANidine HCl 4 MG Tab PO PRN (12:50)
[2024-01-03] MEDS ORDERED: Ondansetron 4 MG TAB PO PRN (12:55)
[2024-01-03] MEDS ORDERED: BUTALB-ACETAMI1 EAC7 PO (14:02)
[2024-01-03] MEDS ORDERED: TOPI100 PO (14:02)
[2024-01-03] MEDS ORDERED: OMEPRAZOLE DR 40 MG (14:03)
[2024-01-03] MEDS ORDERED: Acetaminophen 325 MG TABLET PO SCH ×2 (14:49→21:00)
[2024-01-03] MEDS ORDERED: Carvedilol 6.25 MG Tab PO SCH ×2 (14:51→21:00)
[2024-01-03] MEDS ORDERED: Sacubitril/Valsartan 24 MG-26 MG Tab PO SCH ×2 (14:52→21:00)
[2024-01-03] MEDS ORDERED: Topiramate 100 MG Tab PO ONE (14:55)
[2024-01-03] MEDS ORDERED: FLU VACC TS2024-25(6MOS UP)/PF 45 MCG/0.5 ML SYRINGE IM ONE (15:00)
[2024-01-03] MEDS ORDERED: Insulin Human Lispro 100 Units/ML 3ML Syringe SC SCH (16:30)
[2024-01-03 17:05] VITALS: BP 137/85
[2024-01-03] MEDS ORDERED: OMEP20ER PO (17:08)
[2024-01-03] MEDS ORDERED: IBUP200 PO (17:12)
[2024-01-03] MEDS ORDERED: CeFAZolin Sodium 1,000 MG in NS 50 ML IV SCH (18:00)
--- NOTE | 2024-01-03 18:42 | NUR ---
THE PT IS A NEW ADMIT THIS SHIFT. SHE IS A&OX4, IND IN THE ROOM, ACHS, AND CAN MAKE HER NEEDS KNOWN. 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 SHE DOES HAS A WOUND IN HER PERINEAL AREA AND A PHOTO WAS ADDED TO THE CHART. NO ACUTE EVENTS SINCE ARRIVING TO THE UNIT. SEE NOTES FOR ANY UPATES.
[2024-01-03 20:50] VITALS: BP 138/66
[2024-01-03] MEDS ORDERED: Insulin Glargine-Yfgn 100 Unit/mL 3 ML SYR SC SCH (21:00)
[2024-01-03] MEDS ORDERED: Vancomycin HCL 1,750 MG in NS 500 ML IV SCH (22:00)
[2024-01-04] MEDS ORDERED: NS 250 ML IV PRN (00:20)
[2024-01-04 04:46] VITALS: BP 147/73
[2024-01-04 06:07] LABS: BASOPHILS ABSOLUTE AUTO 0.09 K/mm3 (0.00-0.23); BASOPHILS PERCENT AUTO 1 % (0-2); EOSINOPHILS ABSOLUTE AUTO 0.22 K/mm3 (0.00-0.68); EOSINOPHILS PERCENT AUTO 3 % (0-6); Hemoglobin 13.5 g/dL (11.5-16.0); IMMATURE GRAN ABSOLUTE AUTO 0.03 K/mm3 (0.00-0.10); IMMATURE GRAN PERCENT AUTO 0 % (0-1); LYMPHOCYTES ABSOLUTE AUTO 2.73 K/mm3 (0.84-5.20); LYMPHOCYTES PERCENT AUTO 34 % (21-46); MONOCYTES ABSOLUTE AUTO 0.67 K/mm3 (0.16-1.47); MONOCYTES PERCENT AUTO 8 % (4-13); Mean Corpuscular HGB 28.5 pg (26.0-34.0); Mean Corpuscular HGB Conc 32.9 g/dL (31.5-36.5); Mean Corpuscular Volume 87 fL (80-100); Mean Platelet Volume 10.6 fL (9.1-12.4); NEUTROPHILS ABSOLUTE AUTO 4.42 K/mm3 (1.96-9.15); NEUTROPHILS PERCENT AUTO 54 % (41-73); Platelet Count 323 K/mm3 (150-400); RDW Coefficient Variation 13.2 % (11.7-14.2); RDW Standard Deviation 41.3 fL (35.1-46.3); Red Blood Cell Count 4.74 M/mm3 (3.80-5.20); White Blood Cell Count 8.16 K/mm3 (4.00-11.30)
[2024-01-04 06:37] LABS: Albumin, Blood 2.7 g/dL (3.4-5.0); Albumin/Globulin Ratio 0.8 (0.8-1.8); Bilirubin, Total 0.2 mg/dL (0.1-1.0); Bun/Creatinine Ratio 38.1 (12.0-20.0); Calcium, Blood 9.2 mg/dL (8.5-10.1); Creatinine, Blood 0.76 mg/dL (0.40-1.00); Globulin, Blood 3.4 g/dL (2.2-4.0); Potassium, Blood 4.3 mmol/L (3.5-5.5); Total Protein, Blood 6.1 g/dL (6.4-8.2)
[2024-01-04 07:23] VITALS: BP 150/74
[2024-01-04] MEDS ORDERED: Enoxaparin 40 MG/0.4 ML SYR SC SCH (09:00)
[2024-01-04] MEDS ORDERED: Ezetimibe 10 MG Tab PO SCH (09:00)
[2024-01-04] MEDS ORDERED: Spironolactone 25 MG Tab PO SCH (09:00)
[2024-01-04] MEDS ORDERED: Citalopram Hydrobromide 20 MG Tab PO SCH (09:00)
[2024-01-04] MEDS ORDERED: Aspirin 81 MG Chew PO SCH (09:00)
[2024-01-04] MEDS ORDERED: DAPAGLIFLOZIN PO SCH (09:00)
[2024-01-04] MEDS ORDERED: Insulin Glargine-Yfgn 100 Unit/mL 3 ML SYR SC SCH (09:00)
[2024-01-04] MEDS ORDERED: Insulin Human Lispro 100 Units/ML 3ML Syringe SC SCH ×2 (09:00→11:30)
[2024-01-04] MEDS ORDERED: Omega-3 Acid Ethyl Esters 1,000 MG CAP PO SCH (09:00)
--- NOTE | 2024-01-04 09:00 | NUR ---
pt laying in bed awake a/ox4, pleasant and cooperative with care, follows commands well, reports a bit of pain to dinorah area, states she slept well, lungs are clear t/o, resp even and unlabored, no cough noted, on r/a, hrr, no edema but she has compression sock on, piv to migdalia, but unable to flush and appears a bit puffy, Dr. 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
[2024-01-04] MEDS ORDERED: Topiramate 100 MG Tab PO SCH (12:00)
[2024-01-04] MEDS ORDERED: Bumetanide 1 MG Tab PO ONE (13:25)
[2024-01-04 16:21] VITALS: BP 118/65
--- NOTE | 2024-01-04 19:18 | NUR ---
pt had picc line placed to jayjay site is clear and patent, no acute changes this shift. call light in reach.
[2024-01-04 19:32] VITALS: BP 121/66
[2024-01-04 22:10] LABS: Vancomycin, Trough 33.2 ug/mL (5.0-10.0)
[2024-01-04] MEDS ORDERED: Omeprazole 20 MG CapCR PO ONE (23:50)
--- NOTE | 2024-01-05 00:56 | NUR ---
01/04/24 AT 2330 I CALLED THE HOSPITALIST TO GET AN ORDER FOR 40MG OF PO PRILOSEC FOR THE PATIENT. THE MED IS IN HER AT HOME MED LIST BUT NOT ON THE EMAR AND THE PT STATES SHE USUALLY TAKES IT IN THE EVENINGS.
[2024-01-05 03:26] VITALS: BP 107/72
--- NOTE | 2024-01-05 04:44 | NUR ---
SHIFT SUMMARY: PT IS A STEVEN 48 YO FULL CODE.PT IS SND IN ROOM AND MAKES NEEDS KNOWN. PT WAS ADMITTED FOR CELLULITIS/MRSA ON 01/03/24.PT HAS A WEEPING WOUND ON HER FIFI AREA AND DRESSING IN PLACE. PT HAS PICC LINE IN [facility]. PT HAS A HISTORY OF TYPE 2 DIABETES AND CHF. PT IS CURRENTLY ON RA WITH NO TROUBLE BREATHING.VANCO WAS D/C'D DUE TO TROUGH LEVELS BEING 33.2. 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
[2024-01-05 05:18] LABS: BASOPHILS ABSOLUTE AUTO 0.09 K/mm3 (0.00-0.23); BASOPHILS PERCENT AUTO 1 % (0-2); EOSINOPHILS ABSOLUTE AUTO 0.27 K/mm3 (0.00-0.68); EOSINOPHILS PERCENT AUTO 3 % (0-6); Hematocrit 39.8 % (33.0-51.0); Hemoglobin 13.1 g/dL (11.5-16.0); IMMATURE GRAN ABSOLUTE AUTO 0.08 K/mm3 (0.00-0.10); IMMATURE GRAN PERCENT AUTO 1 % (0-1); LYMPHOCYTES PERCENT AUTO 41 % (21-46); MONOCYTES ABSOLUTE AUTO 0.72 K/mm3 (0.16-1.47); MONOCYTES PERCENT AUTO 7 % (4-13); Mean Corpuscular HGB 28.4 pg (26.0-34.0); Mean Corpuscular HGB Conc 32.9 g/dL (31.5-36.5); Mean Corpuscular Volume 86 fL (80-100); Mean Platelet Volume 10.3 fL (9.1-12.4); NEUTROPHILS ABSOLUTE AUTO 4.53 K/mm3 (1.96-9.15); NEUTROPHILS PERCENT AUTO 47 % (41-73); Platelet Count 315 K/mm3 (150-400); RDW Coefficient Variation 13.2 % (11.7-14.2); RDW Standard Deviation 41.2 fL (35.1-46.3); Red Blood Cell Count 4.62 M/mm3 (3.80-5.20); White Blood Cell Count 9.69 K/mm3 (4.00-11.30)
[2024-01-05 05:43] LABS: Bun/Creatinine Ratio 33.9 (12.0-20.0); Calcium, Blood 8.8 mg/dL (8.5-10.1); Creatinine, Blood 0.92 mg/dL (0.40-1.00); Potassium, Blood 3.9 mmol/L (3.5-5.5)
[2024-01-05 08:02] VITALS: BP 145/92
[2024-01-05] MEDS ORDERED: CefTRIAXone Sodium 1,000 MG in NS 100 ML IV SCH (09:00)
[2024-01-05 09:17] LABS: Vancomycin, Random 22.2 ug/mL
[2024-01-05] MEDS ORDERED: VISBIOME 112.51 EACH PO (09:43)
[2024-01-05] MEDS ORDERED: CEFTRIAXON1 GM/50 M1 IV (09:43)
[2024-01-05] MEDS ORDERED: VANCOMYCIN1.25 GM/24 (09:47)
[2024-01-05] MEDS ORDERED: Dextrose 50% 50 ML Syringe IV ONE (12:30)
[2024-01-05] MEDS ORDERED: Dextrose 50% 50 ML Vial IV ONE (12:40)
[2024-01-05] MEDS ORDERED: LEVOFLOXACIN750 MG PO (12:46)
[2024-01-05] MEDS ORDERED: Diflucan150 MG PO (13:01)
--- NOTE | 2024-01-05 13:15 | NUR ---
DISCHARGE QASIM: PT ESCORTED OUT. SHE STATES UNDERSTANDING OF DISCHARGE PLANS. PT DENIED HAVING WOUND PACKED BEFORE DISCHARGE. MD NOTIFIED. PICC REMOVED BY CHARGE NURSE PRIOR TO DISHCARGE. PT'S PERSONAL BELONGS RETURNED TO PT BEFORE DISCHARGE.
[2024-01-05] MEDS ORDERED: Omeprazole 20 MG CapCR PO SCH (21:00)
== END 2024-01-05 13:11 | disposition home or self-care (01) ==
LOC: ER 08:09 → MEDS 08:10
PROVIDERS: Physician Assistant; Student in an Organized Health Care Education/Training Program; ADMIT Internal Medicine
PROC: 0D9P0ZZ Drainage of Rectum, Open Approach (ICD-10-PCS; principal; 2024-01-03)
DX: K61.1 Rectal abscess (principal); E03.9 Hypothyroidism, unspecified; G47.33 Obstructive sleep apnea (adult) (pediatric); K21.9 Gastro-esophageal reflux disease without esophagitis; E11.51 Type 2 diabetes mellitus with diabetic peripheral angiopathy without gangrene; I25.2 Old myocardial infarction; I11.0 Hypertensive heart disease with heart failure; I50.41 Acute combined systolic (congestive) and diastolic (congestive) heart failure; E78.5 Hyperlipidemia, unspecified; Z79.84 Long term (current) use of oral hypoglycemic drugs; Z79.899 Other long term (current) drug therapy; Z88.0 Allergy status to penicillin; Z88.2 Allergy status to sulfonamides; Z88.8 Allergy status to other drugs, medicaments and biological substances; Z99.89 Dependence on other enabling machines and devices
CPT/HCPCS: 36415; 36569; 46050; 72170; 74177; 80048; 80053; 80202; 82947; 83036; 83605; 85025; 85651; 86140; 87070; 87075; 87076; 87077; 87106; 87185; 87205; 96365-59; 96366; 96366-59; 96367; 96367-59; 96372; 96375-59; 96376; 99284-25; A9270; C1751; G0378; J0690; J0692; J0696; J1650; J1815; J1885; J3370; J7030; J7040; J7050; Q9967

== ENCOUNTER 2024-02-24 17:30 | Emergency (ER) | payer OTHER ==
[~2024-02-24] VITALS: Ht 160 cm; Wt 124.7 kg
[~2024-02-24 17:30] MED LIST changes: +BUTALB-ACETAMI1 EAC7 PO; +CEFDINIR300 M4 PO; +CEFTRIAXON1 GM/50 M1 IV; +Cleocin HCl150 MG; +Diflucan150 MG PO; +LEVOFLOXACIN750 MG PO; +OMEP20ER PO; +OMEPRAZOLE DR 40 MG; +TOPI100 PO; +VANCOMYCIN1.25 GM/24; +VISBIOME 112.51 EACH PO
[2024-02-24 20:29] VITALS: BP 158/100
[2024-02-24] MEDS ORDERED: Tetracaine HCl/Pf 0.5% Opth Soln 4 ml RIGHTEYE ONE (23:10)
== END 2024-02-25 02:20 | disposition home or self-care (01) ==
LOC: ER 17:30
DX: H57.11 Ocular pain, right eye (principal); H54.7 Unspecified visual loss; E11.9 Type 2 diabetes mellitus without complications; I11.0 Hypertensive heart disease with heart failure; I50.9 Heart failure, unspecified; I25.2 Old myocardial infarction; Z88.0 Allergy status to penicillin; Z88.2 Allergy status to sulfonamides; Z88.8 Allergy status to other drugs, medicaments and biological substances; Z79.82 Long term (current) use of aspirin; Z79.84 Long term (current) use of oral hypoglycemic drugs; Z79.899 Other long term (current) drug therapy; Z87.891 Personal history of nicotine dependence
CPT/HCPCS: 70450; 99284-25

== ENCOUNTER 2025-01-01 07:50 | Emergency (ER) | payer BC ==
[~2025-01-01] VITALS: Ht 162.6 cm; Wt 104.3 kg
[2025-01-01 07:57] VITALS: BP 158/72
[2025-01-01] MEDS ORDERED: Ketorolac Tromethamine 30mg Vial IM ONE (08:35)
== END 2025-01-01 10:31 | disposition home or self-care (01) ==
LOC: ER 07:50
DX: S93.402A Sprain of unspecified ligament of left ankle, initial encounter (principal); X58.XXXA Exposure to other specified factors, initial encounter; E11.9 Type 2 diabetes mellitus without complications; I11.0 Hypertensive heart disease with heart failure; I50.9 Heart failure, unspecified; I25.2 Old myocardial infarction; Z87.891 Personal history of nicotine dependence
CPT/HCPCS: 73610; 96372; 99283-25; J1885

== ENCOUNTER 2025-01-13 00:47 | Day surgery (SDC) | payer BC ==
[2025-01-13] MEDS ORDERED: Lidocaine HCl 4% Cream 5 GM ONE (13:22)
== END 2025-01-13 23:00 | disposition home or self-care (01) ==
LOC: WOUND 00:47
DX: E11.621 Type 2 diabetes mellitus with foot ulcer (principal); L97.512 Non-pressure chronic ulcer of other part of right foot with fat layer exposed; E11.51 Type 2 diabetes mellitus with diabetic peripheral angiopathy without gangrene; E11.40 Type 2 diabetes mellitus with diabetic neuropathy, unspecified; I25.10 Atherosclerotic heart disease of native coronary artery without angina pectoris; I50.9 Heart failure, unspecified; Z88.0 Allergy status to penicillin; Z88.2 Allergy status to sulfonamides; Z88.1 Allergy status to other antibiotic agents; Z88.8 Allergy status to other drugs, medicaments and biological substances; Z79.4 Long term (current) use of insulin; Z79.84 Long term (current) use of oral hypoglycemic drugs; Z87.891 Personal history of nicotine dependence
CPT/HCPCS: A9270; G0463

== ENCOUNTER 2025-01-20 00:19 | Day surgery (SDC) | payer BC | END 2025-01-20 23:11 | disposition home or self-care (01) | LOC: WOUND 00:19 | DX: E11.621 Type 2 diabetes mellitus with foot ulcer (principal); L97.512 Non-pressure chronic ulcer of other part of right foot with fat layer exposed; E11.40 Type 2 diabetes mellitus with diabetic neuropathy, unspecified; I25.10 Atherosclerotic heart disease of native coronary artery without angina pectoris; I50.9 Heart failure, unspecified; E11.51 Type 2 diabetes mellitus with diabetic peripheral angiopathy without gangrene | CPT/HCPCS: G0463 ==

== ENCOUNTER 2025-01-28 01:00 | Day surgery (SDC) | payer BC | END 2025-01-28 22:57 | disposition home or self-care (01) | LOC: WOUND 01:00 | DX: E11.621 Type 2 diabetes mellitus with foot ulcer (principal); L97.512 Non-pressure chronic ulcer of other part of right foot with fat layer exposed; E11.51 Type 2 diabetes mellitus with diabetic peripheral angiopathy without gangrene; I25.10 Atherosclerotic heart disease of native coronary artery without angina pectoris; I50.9 Heart failure, unspecified | CPT/HCPCS: A9270 ==

== ENCOUNTER 2025-02-10 06:59 | Day surgery (SDC) | payer BC | END 2025-02-10 23:31 | disposition home or self-care (01) | LOC: WOUND 06:59 | DX: E11.621 Type 2 diabetes mellitus with foot ulcer (principal); L97.512 Non-pressure chronic ulcer of other part of right foot with fat layer exposed; E11.51 Type 2 diabetes mellitus with diabetic peripheral angiopathy without gangrene; I25.10 Atherosclerotic heart disease of native coronary artery without angina pectoris; I50.9 Heart failure, unspecified; E11.40 Type 2 diabetes mellitus with diabetic neuropathy, unspecified | CPT/HCPCS: G0463 ==

== ENCOUNTER 2025-02-17 02:29 | Day surgery (SDC) | payer BC | END 2025-02-17 23:59 | disposition home or self-care (01) | LOC: WOUND 02:29 | DX: E11.621 Type 2 diabetes mellitus with foot ulcer (principal); L97.512 Non-pressure chronic ulcer of other part of right foot with fat layer exposed; E11.40 Type 2 diabetes mellitus with diabetic neuropathy, unspecified; E11.51 Type 2 diabetes mellitus with diabetic peripheral angiopathy without gangrene; I25.10 Atherosclerotic heart disease of native coronary artery without angina pectoris; I50.9 Heart failure, unspecified | CPT/HCPCS: G0463 ==

== ENCOUNTER 2025-02-24 00:08 | Day surgery (SDC) | payer BC ==
[2025-02-24] MEDS ORDERED: Lidocaine HCl 4% Cream 5 GM ONE (07:48)
== END 2025-02-24 23:00 | disposition home or self-care (01) ==
LOC: WOUND 00:08
DX: E11.621 Type 2 diabetes mellitus with foot ulcer (principal); L97.512 Non-pressure chronic ulcer of other part of right foot with fat layer exposed; I25.10 Atherosclerotic heart disease of native coronary artery without angina pectoris; I50.9 Heart failure, unspecified
CPT/HCPCS: A9270; G0463

== ENCOUNTER → 2025-03-10 | Day surgery (SDC) | payer BC | LOC: WOUND 11:30 | DX: E11.621 Type 2 diabetes mellitus with foot ulcer (principal); L97.511 Non-pressure chronic ulcer of other part of right foot limited to breakdown of skin; E11.51 Type 2 diabetes mellitus with diabetic peripheral angiopathy without gangrene; E11.40 Type 2 diabetes mellitus with diabetic neuropathy, unspecified; I25.10 Atherosclerotic heart disease of native coronary artery without angina pectoris; I50.9 Heart failure, unspecified | CPT/HCPCS: G0463 ==